=== PATIENT | female | born 1975 | race Caucasian/White ===

== ENCOUNTER 2020-03-27 04:29 | Day surgery (SDC) | payer OTHER ==
[2020-03-24 14:31] VITALS: BMI 26.5
[2020-03-27] MEDS ORDERED: MIDAZOLAM HCL 2 MG/2 ML SINGLE DOSE VIAL ONE (13:47)
[2020-03-27] MEDS ORDERED: PROPOFOL 20 ML ONE ×2 (13:47→14:17)
[2020-03-27 15:49] VITALS: BP 148/95; PULSE 94; TEMP 97.1
== END 2020-03-27 15:45 | disposition home or self-care (01) ==
LOC: JASU-SURG 04:29
PROVIDERS: ATTEND Urology
PROC: 0TF4XZZ Fragmentation in Left Kidney Pelvis, External Approach (ICD-10-PCS; principal; 2020-03-27 12:30)
DX: N20.0 Calculus of kidney (principal)
CPT/HCPCS: 84703

== ENCOUNTER 2020-10-09 04:36 | Day surgery (SDC) | payer OTHER ==
[2020-10-06 12:27] VITALS: BMI 26.0
[2020-10-09] MEDS ORDERED: PROPOFOL 20 ML ONE ×4 (16:31→17:20)
[2020-10-09] MEDS ORDERED: ACETAMINOPHEN 325 MG TABLET (FP) ONE (18:02)
[2020-10-09] MEDS ORDERED: ACETAMINOPHEN 500 MG TABLET (FP) PO ONE ×2 (18:09→18:13)
[2020-10-09 19:37] VITALS: BP 104/64; PULSE 69; TEMP 97.5
== END 2020-10-09 18:33 | disposition home or self-care (01) ==
LOC: JASU-SURG 04:36
PROVIDERS: ATTEND Urology
PROC: 0TF3XZZ Fragmentation in Right Kidney Pelvis, External Approach (ICD-10-PCS; principal; 2020-10-09 14:30)
DX: N20.0 Calculus of kidney (principal)
CPT/HCPCS: 81025

== ENCOUNTER 2020-12-18 04:35 | Day surgery (SDC) | payer OTHER ==
[2020-12-14 17:48] VITALS: BMI 26.0
[2020-12-18] MEDS ORDERED: MIDAZOLAM HCL 2 MG/2 ML SINGLE DOSE VIAL ONE ×2 (14:56)
[2020-12-18] MEDS ORDERED: PROPOFOL 20 ML ONE (15:17)
[2020-12-18 16:51] VITALS: BP 121/70; PULSE 84; TEMP 97.4
== END 2020-12-18 16:30 | disposition home or self-care (01) ==
LOC: JASU-SURG 04:35
PROVIDERS: ATTEND Urology
PROC: 0TF4XZZ Fragmentation in Left Kidney Pelvis, External Approach (ICD-10-PCS; principal; 2020-12-18 13:00)
DX: N20.0 Calculus of kidney (principal)
CPT/HCPCS: 81025

== ENCOUNTER 2021-06-18 04:47 | Day surgery (SDC) | payer OTHER ==
[2021-06-13 12:53] VITALS: BMI 26.5
[2021-06-18] MEDS ORDERED: MIDAZOLAM HCL 2 MG/2 ML SINGLE DOSE VIAL ONE (10:12)
[2021-06-18] MEDS ORDERED: oxyCODONE HCL 5 MG TABLET PO PRN (10:39)
[2021-06-18] MEDS ORDERED: LIDOCAINE HCL/PF 2% SDV 5ML VIAL ONE (10:39)
[2021-06-18] MEDS ORDERED: KETOROLAC TROMETHAMINE 30 MG/1 ML VIAL ONE (10:39)
[2021-06-18] MEDS ORDERED: DEXAMETHASONE SOD PHOSPHATE 4 MG/1 ML VIAL ONE (10:39)
[2021-06-18] MEDS ORDERED: ONDANSETRON 4 MG/2 ML VIAL IVPUSH PRN (10:39)
[2021-06-18] MEDS ORDERED: LACTATED RINGERS SOLUTION 1,000 ML IV SCH (10:45)
[2021-06-18] MEDS ORDERED: ACETAMINOPHEN 325 MG TABLET (FP) PO PRN (10:53)
[2021-06-18] MEDS ORDERED: IBUPROFEN 400 MG TABLET (FP) PO PRN (10:53)
[2021-06-18] MEDS ORDERED: PROPOFOL 20 ML ONE (11:13)
[2021-06-18 13:11] VITALS: BP 120/78; PULSE 83; TEMP 97.1
== END 2021-06-18 13:11 | disposition home or self-care (01) ==
LOC: JASU-SURG 04:47
PROVIDERS: ATTEND Obstetrics & Gynecology
PROC: 0UB98ZZ Excision of Uterus, Via Natural or Artificial Opening Endoscopic (ICD-10-PCS; principal; 2021-06-18 08:45)
PROC: 0UDB8ZZ Extraction of Endometrium, Via Natural or Artificial Opening Endoscopic (ICD-10-PCS; 2021-06-18 08:45)
DX: N92.0 Excessive and frequent menstruation with regular cycle (principal); D25.0 Submucous leiomyoma of uterus; N84.0 Polyp of corpus uteri
CPT/HCPCS: 81025; 86850; 86900; 86901; 88305-TC; 94760

== ENCOUNTER 2023-03-10 04:37 | Day surgery (SDC) | payer OTHER ==
[2023-03-04 15:46] VITALS: BMI 27.4
[2023-03-10 11:38] VITALS: RESP 20
[2023-03-10] MEDS ORDERED: MIDAZOLAM HCL 2 MG/2 ML SINGLE DOSE VIAL ONE ×2 (16:28→16:35)
[2023-03-10] MEDS ORDERED: PROPOFOL 20 ML ONE (16:45)
[2023-03-10 18:00] VITALS: BP 122/84; PULSE 87; TEMP 97.8
== END 2023-03-10 18:01 | disposition home or self-care (01) ==
LOC: JASU-SURG 04:37
PROVIDERS: ATTEND Urology
PROC: 0TF3XZZ Fragmentation in Right Kidney Pelvis, External Approach (ICD-10-PCS; principal; 2023-03-10 15:30)
DX: N20.0 Calculus of kidney (principal)
CPT/HCPCS: 81025